=== PATIENT | male | born 1975 | race Caucasian/White ===

== ENCOUNTER 2023-02-11 05:44 | Emergency (ER) | payer BC ==
[2023-02-11] MEDS ORDERED: Ondansetron ODT 4 MG TAB ONE (05:54)
[2023-02-11] MEDS ORDERED: Ondansetron PF 4 MG/2 ML Vial ONE (06:07)
[2023-02-11] MEDS ORDERED: fentaNYL 50 mcg/mL 1 mL Vial ONE (06:07)
[2023-02-11] MEDS ORDERED: Ketorolac Tromethamine 30 MG/ML VIAL ONE (06:07)
[2023-02-11 06:26] LABS: #Eosinphils 0.4 thou/uL (0.0-0.7); #Lymphocytes 2.3 thou/uL (1.20-3.40); #Monocytes 0.6 thou/uL (0.11-0.59); #Neutrophils 3.4 thou/uL (1.40-6.50); %Basophils 0.2 % (0.0-1.0); %Eosinophils 5.5 % (0.0-10.0); %Lymphocytes 33.9 % (21.0-51.0); %Monocytes 8.9 % (0.0-10.0); %Neutrophils 51.5 % (42.0-75.0); Hemoglobin 14.9 g/dL (14.0-18.0); Mean Corpuscular HGB CONC 33.6 g/dL (32.0-36.0); Mean Corpuscular Volume 98.1 fl (78.0-98.0); Mean Platelet Volume 7.8 fL (7.4-10.4); Platelet Count 221 10x3/uL (130-400); RBC Distribution Width 11.2 % (11.5-14.5); White Blood Cell (WBC) Count 6.7 10x3/uL (4.8-10.8)
[2023-02-11 06:43] LABS: Bacteria/HPF None Seen HPF (None Seen); Bilirubin Negative (Negative); Blood, Urine 2+ (Negative); Clarity Clear (Clear); Glucose, Urine (Dipstick) Normal (Negative); Ketone, Urine Negative (Negative); Leukocyte Negative Leu/uL (Negative); Nitrite Negative (Negative); Protein, Urine (Dipstick) Negative (Neg-Trace); Specific Gravity, Urine 1.017 (1.002-1.036); Squamous Epithelial None Seen HPF (0-3); Urobilinogen Normal mg/dL (Less than 2); WBC/HPF 0-3 HPF (0-3); pH, Urine 5.5 (5.0-9.0)
[2023-02-11 07:02] LABS: ALT (SGPT) 17 U/L (8-55); AST (SGOT) 22 U/L (5-34); Albumin 4.2 g/dL (3.5-5.0); Alkaline Phosphatase 66 U/L (40-110); Anion Gap 14 mmol/L (10-20); BUN (Urea Nitrogen) 16 mg/dL (8.9-20.6); Bilirubin, Total 0.6 mg/dL (0.2-1.2); Calc. Creatinine Clearance 0 mL/min (70-130); Calcium 9.2 mg/dL (7.8-10.44); Carbon Dioxide 22 mmol/L (22-29); Chloride 108 mmol/L (98-107); Estimated GFR 84; Globulin 2.8 g/dL (2.4-3.5); Glucose 107 mg/dL (70-105); Lipase 26 U/L (8-78); Potassium 4.7 mmol/L (3.5-5.1); Sodium 139 mmol/L (136-145)
== END 2023-02-11 08:10 | disposition home or self-care (01) ==
LOC: ERS 05:44
DX: N13.2 Hydronephrosis with renal and ureteral calculous obstruction (principal); F17.220 Nicotine dependence, chewing tobacco, uncomplicated
CPT/HCPCS: 74176; 80053; 81003; 81015; 83690; 85025; 96361; 96374; 96375; J1885; J2405; J3010; Q0162